=== PATIENT | male | born 1970 | race Caucasian/White ===

== ENCOUNTER 2024-07-16 16:28 | Emergency (ER) | payer BC, SELFPAY ==
[2024-07-16 16:37] VITALS: BP 138/96; PULSE 60; RESP 18; TEMP 36.4; O2SAT 97; BMI 25.3
--- NOTE | 2024-07-16 17:06 | ED.EYEPROB ---
HPI - Eye Problem General Chief complaint: Eye Problems Stated complaint: L eye injury Time Seen by Provider: 07/16/24 16:46 History of Present Illness HPI Narrative: This 53-year-old male comes in with pain and the suspicion of something in his left eye. He states that he was wearing protective glasses but was working under his car and suspects that he got something into his eye. Related Data Home Medications ?Medication ?Instructions ?Recorded ?Confirmed aspirin 81 mg capsule 81 mg PO DAILY 07/16/24 07/16/24 azelastine 137 mcg-fluticasone 50 2 spray intranasal DAILY 07/16/24 07/16/24 mcg/spray nasal spray ciclesonide 50 mcg nasal spray 2 spray intranasal DAILY PRN 07/16/24 07/16/24 (Omnaris) gabapentin 300 mg capsule 300 - 600 mg PO DAILY PRN 07/16/24 07/16/24 magnesium oxide 400 mg PO DAILY 07/16/24 07/16/24 sotalol 120 mg tablet (Betapace) 60 mg PO BID 07/16/24 07/16/24 Allergies Allergy/AdvReac Type Severity Reaction Status Date / Time Sulfa (Sulfonamide Allergy Severe Rash Verified 07/16/24 16:40 Antibiotics) Review of Systems Status of ROS: Reports: 10 or more systems reviewed and unremarkable except as noted in History and below Narrative: Constitutional: No fevers, no weight gain or loss. Eyes: Erythema and tearing in his left eye. HENT: No congestion, no sore throat, no ear pain. Cardiovascular: No chest pain, no palpitations. Respiratory: No shortness of breath, no wheezes, no cough. Gastrointestinal: No abdominal pain, no vomiting, no diarrhea. Genitourinary: No dysuria, no hematuria. Musculoskeletal: Normal range of motion. Skin: No rashes, no pruritis. Neurological: No dizziness, weakness, sensory change, speech change. Endo/Heme/Allergies: No bruising or bleeding. No polydipsia. Pysch: no suicidality, no anxiety, no insomnia. All other systems reviewed and are negative. Exam Narrative: Exam Narrative: Constitutional: Well-developed, well-nourished, no acute distress. HEENT: Normocephalic, atraumatic. Left eye has increased tearing with some erythema. Under examination with magnification there is no sign of foreign object until everting his eyelid. There was a small metal foreign object that was removed with a Q-tip. Neck: Normal range of motion. Nontender. Supple. Heart: Intact distal pulses. Lungs: No chest discomfort. No wheezes, rhonchi, or rales. Abdomen: Nontender. Back: Normal range of motion. Extremities: Normal range of motion. No injury. Skin: Intact. No rash. Warm. No erythema or pallor. Neurologic: No altered sensation. No weakness. Alert and oriented. Psychiatric: No suicidality. No anxiety or depression. No insomnia. Nursing notes and vitals signs are reviewed. Const: Vital Signs, click to edit/add: Vital Signs - 24 hr 07/16/24 16:37 Temperature 97.6 F Pulse Rate [Pulse Oximeter] 60 Respiratory Rate 18 Blood Pressure [Le ft Upper Arm] 138/96 H Pulse Oximetry 97 Oxygen Delivery Me thod Room Air Course Vital Signs Vital signs: Initial Vital Signs Temperature 97.6 F 07/16/24 16:37 Temperature Source Temporal Artery Scan 07/16/24 16:37 Pulse Rate 60 07/16/24 16:37 Respiratory Rate 18 07/16/24 16:37 Blood Pressure 138/96 H 07/16/24 16:37 Blood Pressure Mean 110 H 07/16/24 16:37 Blood Pressure Position Sitting 07/16/24 16:37 Pulse Oximetry 97 07/16/24 16:37 Oxygen Delivery Method Room Air 07/16/24 16:37 Vital Signs Temperature 97.6 F 07/16/24 16:37 Pulse Rate 60 07/16/24 16:37 Respiratory Rate 18 07/16/24 16:37 Blood Pressure 138/96 H 07/16/24 16:37 Pulse Oximetry 97 07/16/24 16:37 Oxygen Delivery Method Room Air 07/16/24 16:37 Temperature 97.6 F 07/16/24 16:37 Pulse Rate 60 07/16/24 16:37 Respiratory Rate 18 07/16/24 16:37 Blood Pressure 138/96 H 07/16/24 16:37 Pulse Oximetry 97 07/16/24 16:37 Oxygen Delivery Method Room Air 07/16/24 16:37 MDM - Eye Problem MDM Narrative Medical decision making narrative: This patient comes in with left eye pain suspecting a foreign object. After anesthesia with tetracaine I did examine his eye under magnification and did not find any abnormality until everting his upper eyelid. There was a foreign object like a small metal filing that was easily removed from the eyelid using a cotton swab. The patient is okay to be discharged home and was sent home with flurbiprofen from the eye kit. Discharge Plan Discharge Clinical Impression: Abrasion, corneal Patient Disposition: Home, Self-Care Condition: Improved Additional Instructions: Use medication as needed and indicated. Activity as tolerated. Follow up with MD return if worsening. Prescriptions: No Action sotalol [Betapace] 120 mg tablet 60 mg PO BID aspirin 81 mg capsule 81 mg PO DAILY gabapentin 300 mg capsule 300 - 600 mg PO DAILY PRN Omnaris 50 mcg spray,non-aerosol 2 spray intranasal DAILY PRN Rx Instructions: into each nostril azelastine-fluticasone 137-50 mcg/spray spray,non-aerosol 2 spray intranasal DAILY magnesium oxide 400 mg magnesium capsule 400 mg PO DAILY Stand Alone Forms: [facility] Info Instructions
--- OUTSIDE RECORDS SUMMARY | 2024-07-16 17:39 | XMS_ITS | Clinical Summary ---
Author Organization [facility] Address [address] [place] [id number] Care Team Providers Care Appliance Repair Technician Name Role Phone Jazzy Romero MD Unavailable + Nurses, Advanced Heart Failure Unavailable + Clinic, No Pcp Or Primary Care Provider Unavaila ble Allergies Active Allergy Reactions Criticality Noted Date Comments Sulfa (Sulfonamide Antibiotics) Rash Low 10/2008 Medications fluticasone (50 mcg per actuation) nasal solution (FLONASE)Indication s:Seasonal allergic rhinitis, unspecified trigger Inhale into both nostrils. Only as needed. 48 mL 0 Active rizatriptan (MAXALT) 5 mg tabletIndications:O cular migraine Take 1 Tablet (5 mg) by mouth 2 times daily if needed for Migraine. Give at minimum 2hrs apart. Max Dose: 30mg per 24hrs. As needed. 10 Tablet 1 Active cholecalciferol (VITAMIN D3) 5,000 unit capsule Take 1 Capsule (5,000 units) by mouth once daily. 40 units = 1 mcg (5000 units = 125 mcg) 0 2 Active gabapentin (NEURONTIN) 300 mg capsule TAKE 1 TO 2 CAPSULES BY MOUTH EVERY NIGHT Active APBVEXOBT-ZOSLMCL-Y AGNESIUM ORAL Take by mouth. Active ascorbic acid (VITAMIN C DROPS ORAL) Take by mouth. Active aspirin chewable 81 mg chewable tabletIndications:C ardiac sarcoidosis (HC) Chew 1 Tablet (81 mg) by mouth once daily. 4 Active losartan (COZAAR) 25 mg tabletIndications:N on-ischemic cardiomyopathy (HC) TAKE 1 TABLET BY MOUTH EVERY DAY 90 Tablet 3 4 Active sotaloL (BETAPACE) 120 mg tabletIndications:V T (ventricular tachycardia) (HC),Sarcoidosis TAKE 0.5 TABLETS (60 MG) BY MOUTH EVERY 12 HOURS. 90 Tablet 3 5 Active Active Problems Problem Noted Date Diagnosed Date HTN (hypertension) 04/21/2023 Migraine syndrome 04/21/2023 Celiac disease 04/10/2022 Overview (04/21/2023): Diagnosis 2021. 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 See Cardiac in-patient notes from 07/2013. 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 Biventricular ICD (implantab le cardioverter-defibrillator) in place Resolved Problems Problem Noted Date Diagnosed Date Resolved Date VT (ventricular tachycardia) 05/27/2014 05/17/2018 Palpitations 07/20/2013 05/27/2014 Elevated troponin 07/20/2013 05/27/2014 Renal insufficiency 07/20/2013 05/18/19 19 Right-sided heart failure Pacemaker 05/27/2014 Immunizations Immunization Administration Dates Next Due Hepatitis A (Adult) 05/21/2012,08/08/1996 Oral Polio Vaccine 08/08/1996 Td (Age >=7 Years) 08/08/1996 Tdap 02/25/2011 Typhoid (injectable) 05/21/2012 Family History Medical History Relation Name Comments Other Other No family histo ry of premature CAD, no history of sudden (cardiac) Relation Name Status Comments Other Social History Tobacco Use Types Packs/Day Years Used Date Smoking Tobacco: Never Smokeless Tobacco: Never Tobacco Cessation:Counseling Given: Yes Alcohol Use Standard Drinks/Week Comments Yes 0 (1 standard drink = 0.6 oz pur e alcohol) OCC PHQ-2 Answer Date Recorded PHQ-2 TOTAL SCORE 0 04/21/2023 Social Connections Answer Date Recorded Frequency of Communication with Friends and Fami ly Not on file 02/14/2021 Financial Resource Strain Answer Date R ecorded Difficulty of Paying Living Expenses Not on file 02/14/2021 Difficulty of Paying Living Expenses Not on file 02/14/2021 Interpersonal Safety Answer Date Record ed Are you being hit, kicked, p ushed or yelled at (see row info)? 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 Gender Identity Not on file Sexual Orientation Not on file Obstetrics History Last Filed Vital Signs Vital Sign Reading Time Taken Comments Blood Pressure 102/68 11/05/2023 8:27 AM CDT Pulse 59 11/05/2023 8:27 AM CDT Temperature 35.9 C (96.6 F) 10/01/2023 12:45 PM CDT Respiratory Rate 16 10/01/2023 12:45 PM CDT Oxygen Saturation 100% 11/05/2023 8:27 AM CDT Inhaled Oxygen Concentration - - Weight 83.9 kg (185 lb) 11/05/2023 8:27 AM CDT Height 185.4 cm (6' 0.99) 11/05/2023 8:27 AM CD T Body Mass Index 24.41 11/05/2023 8:27 AM CDT Plan of Treatment Upcoming Encounters Date Type Department Care Team (Late st Contact Info) Description 10/04/2024 Cardiac Device Check [facility] [phone] Health Maintenance Due Date Last Done Comments HIV for age 15-65 1984 Hepatitis C screening for ag e 18-79 09/25/1987 Hepatitis B series for 19+ ( 1 of 3 - 19+ 3-dose series) 1988 Pneumococcal series for age 50+ (1 of 2 - PCV) 1988 Colonoscopy through age 75 2014 Lipids for age 45-75 07/21/2018 07/21/2013 Zoster (shingles) series for age 50+ (1 of 2) 09/25/2019 Tetanus booster 02/25/2021 02/25/2011, 04/2011, 08/08/1996 COVID-19 vaccine series ( season) 2023 12/26/2020 Depression screening for age 12+ 04/21/2024 04/21/2023, 06/14/2020, 06/03/2019, Additional history exists Influenza Vaccine (Season Ended) 2024 BMI (ht and wt on same day) for age 18+ 11/04/2024 11/05/2023, 04/21/2023, 10/31/2022, Additional history exists Tdap Completed 02/25/2011 Medical Devices Implanted Type Area Severity Of Illness Coordinator Device Identifier Shelf Expiration Date Model / Serial / Lot Budget Counselor-D Implanted:07/26 by Amol Scott MD (Quantity not on file) CERTIFIED [employer]ORTHAND REPORTER-D [employer] ENERG EN [id number] / / Procedures Procedure Name Priority Date/Time Associated Diagnosis Comments LIPID PANEL Early AM 07/21/2013 6:00 AM CDT from Last 3 Months or Most Recently Relevant to Health Maintenance Results * (ABNORMAL) LIPID PANEL (07/21/2013 6:00 AM CDT) CHOLESTEROL,TOTAL 124 100 - 199 mg/dL 07/21/2013 7:38 AM CDT [facility] TRIGLYCERIDES 42 <150 mg/dL 07/21/2013 7:38 AM CDT [facility] HDL CHOLESTEROL 38(L) >40 mg/dL 4 7:38 AM CDT [facility] NON-HDL CHOLESTEROL 86 <145 mg/dl 07/21/2013 7:38 AM CDT [facility] CHOL/HDL RATIO 3.26 <4.50 07/21/2013 7:38 AM CDT [facility] LDL CHOLESTEROL 78 <=130 mg/dL 07/21/2013 7:38 AM CDT [facility] PATIENT STATUS FASTING 07/21/2013 7:38 AM CDT [facility] Blood specimen (specimen) BLOOD SPECIMEN / Unknown Butterfly / Unknown 07/21/2013 6:00 AM CDT 07/21/2013 6:42 AM CDT Sharri Thomas NP CHEMISTRY Final R esult [facility] [address] [place] [address], [place] from Last 3 Months or Most Recently Relevant to Health Maintenance Insurance BLUE CROSS OF NON-MA-ITS BLUE CROSS OF NON-MA-ITS Advance Directives * Full Code (Latest Code Status on File) Date Activated Date Inactivated Comments 11/14/2014 6:06 AM 11/14/2014 6:15 PM * Full Code Date Activated Date Inactivated Comments 08/16/2014 6:54 AM 08/16/2014 4:31 PM * Full Code Date Activated Date Inactivated Comments 05/27/2014 11:13 PM 05/31/2014 3:44 PM * Full Code Date Activated Date Inactivated Comments 07/20/2013 3:49 PM 07/28/2013 4:00 PM Care Teams Appliance Repair Technician Relationship Specialty Start Date End Date Clinic, No Pcp Or . PCP - General 03/05/22 Jazzy Romero MD [address] [address] [place] [address] Cardiology - CHF Cardiovascular Disease 11/04/18 Nurses, Advanced Heart Failure [address] [address] Heart Failure Care Coordination Advanced Heart Failure/Transplant Card 12/26/19
== END 2024-07-16 17:38 | disposition home or self-care (01) ==
LOC: ED 17:37
PROVIDERS: Emergency Provider Emergency Medicine Emergency Medical Services; PCP Family Medicine
DX: S05.02XA Injury of conjunctiva and corneal abrasion without foreign body, left eye, initial encounter (principal)
CPT/HCPCS: 99283; 99284; A9270

== ENCOUNTER 2024-10-14 15:23 | Emergency (ER) | payer BC, SELFPAY ==
--- OUTSIDE RECORDS SUMMARY | 2024-10-14 15:26 | XMS_ITS | Patient Health Record ---
Author Organization [facility] Address [address] [place] [address] Support Name Relationship Address Phone Frandy Giron Guarantor Unknown Reason For Referral No Information Plan Of Treatment No Information
--- OUTSIDE RECORDS SUMMARY | 2024-10-14 15:26 | XMS_ITS | Clinical Summary ---
Author Organization [facility] Address [address] [place] [address] Care Team Providers Care [employer] Name Role Phone Jazzy Rea MD Unavailable + Nurses, Advanced Heart Failure Unavailable + Ancelmo Corea MD Primary Care Provider Allergies Active Allergy Reactions Criticality Noted Date [...] 2 CAPSULES BY MOUTH EVERY NIGHT Active ANWURBSUO-VZBPLIU-M AGNESIUM ORAL Take by mouth. Active ascorbic [...] 05/18/19 19 Right-sided heart failure Pacemaker 05/27/2014 Encounters Date Type Department Care Team Description 10/06/2024 11:00 AM CDT Office Visit [facility] [address] [place] [address] Rosita Díaz MS, CGC Heart Problem 10/06/2024 Travel 10/02/2024 Travel 09/13/2024 Telephone [facility] [address] [place] [address] Rosita Díaz MS, [facility] Appointment 09/05/2024 Telephone [facility] [address] [place] [phone] Rosita Díaz, MS, CGC Appointment Request 08/30/2024 9:30 AM CDT Office Visit [facility] [address] [place] [address] Jazzy Rea MD CV Heart Failure Est (MARCO FOLLOW UP WITH LAB AND ECHO PRIOR PER DR REA. Lab appt on 08/29/24 at [facility] @ 2:30 PM - orders faxed 08/25/24.//No Pcp Or Clinic) 08/30/2024 Travel 08/29/2024 1:00 PM CDT Orders Only [facility] [address] [place] [address] 1 scan: (1-Ord) ECHO TTE LIMITED WO CONTRAST W COLOR W LTD DOPPLER ([id number]) 08/29/2024 Orders Only [facility] [address] [place] [address] Yasmin Ma 2 scans: (2-Ord) BNP 08/29/24 08/28/2024 Travel 08/25/2024 Travel 08/08/2024 Telephone [facility] [address] [place] [address] Jazzy Rea MD Imaging 08/03/2024 Telephone [facility] [address] [place] [address] Ancelmo Corea MD Referral (QUESTION) 08/03/2024 Telephone [facility] [address] [address] Ancelmo Corea MD Results 08/02/2024 7:30 AM CDT Office Visit [facility] [address] [place] [address] Ancelmo Corea MD Urinary Problem (Urgency x one week) 08/02/2024 Travel 07/31/2024 Travel from Last 3 Months Immunizations Immunization Administration Dates Next Due Hepatitis [...] 0 04/21/2023 Social Connections Answer Date Recorded Do you often feel lonely or isolated from those around you? 0 07/31/2024 Financial Resource Strain Answer Date R ecorded Difficulty of Paying Living Expenses 3 07/31/2024 Difficulty of Paying Living Expenses Not on file 07/31/2024 Food Insecurity Answer Date Recorded Do you worry your food will run out before you are able to buy more? 1 07/31/2024 Transportation Needs Answer Date Record ed Does lack of transportation keep you from medica l appointments? 1 07/31/2024 Does lack of transportation keep you from work, meetings or getting things that you need? 1 07/31/2024 Housing Stability Answer Date Recorded What is your housing situation today? 1 07/31/2024 Interpersonal Safety Answer Date Record ed Are you being hit, kicked, p ushed or yelled at (see row info)? No 10/01/2023 Interpersonal Safety Abuse 12 - 18 Not on file 10/01/2023 Interpersonal Safety Ambulatory Vulnerability No t on file 10/01/2023 Utilities Answer Date Recorded Do you have trouble paying f or utilities (for example, heat, electricity, water, phone)? 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 Gender Identity Not on file Sexual Orientation Not on file Obstetrics History Last Filed Vital Signs Vital Sign Reading Time Taken Comments Blood Pressure 124/84 08/30/2024 9:32 AM CDT Pulse 60 08/30/2024 9:32 AM CDT Temperature 35.9 C (96.6 F) 10/01/2023 12:45 PM CDT Respiratory Rate 16 10/01/2023 12:4 5 PM CDT Oxygen Saturation 98% 08/30/2024 9:32 AM CDT Inhaled Oxygen Concentration - - Weight 87.4 kg (192 lb 11.2 oz) 08/30/2024 9:32 AM CDT Height 185.4 cm (6' 0.99) 08/30/2024 9:32 AM CD T Body Mass Index 25.43 08/30/2024 9:32 AM CDT Plan of Treatment Upcoming Encounters Date Type Department Care Team (Latest Contact Info) Description 11/03/2024 10:30 AM CDT Appointment [facility] [address] [place], [place] [id number] 01/25/2025 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 Cardiac Device Check [address] [place] [address] Health Maintenance Due Date Last Done Comments [...] 02/25/2011, 04/2011, 08/08/1996 COVID-19 vaccine series ( - season) 2023 12/26/2020 Depression screening for age 12+ 04/21/2024 04/21/2023, 06/14/2020, 06/03/2019, Additional history exists Influenza Vaccine (#1) 2024 BMI (ht and wt on same day) for age 18+ 08/30/2025 08/30/2024, 11/05/2023, 04/21/2023, Additional history exists Medical Devices Implanted Type Area Donation Worker Device Identifier Shelf Expiration Date Model / Serial / Lot Nail Technician Teacher-D Implanted:07/26 by Amol Scott MD (Quantity not on file) SMUDGER-D [employer] ENERG EN [id number] / / Procedures Procedure Name Priority Date/Time Associated Diagnosis Comments SCAN CORRESP-LABORATORY RESULTS 08/30/2024 10:40 AM CDT ECHO TTE LIMITED WO CONTRAST W COLOR W LTD DOPPLER MARCO 08/29/2024 1:21 PM CDT Cardiac sarcoidosis (HC) Non-ischemic cardiomyopathy (HC) BASIC METABOLIC PANEL Routine 08/29/2024 Cardiac sarcoidosis (HC) 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) PRO-BNP Routine 08/29/2024 Cardiac sarcoidosis (HC) 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) URINALYSIS MACROSCOPIC - [facility] ONLY POC DIP ([facility]) Routine 08/02/2024 8:42 AM CDT Urinary frequency URINE CULTURE Routine 08/02/2024 8:41 AM CDT Urinary frequency URINALYSIS MICROSCOPIC Routine 08/02/2024 8:41 AM CDT Urinary frequency BASIC METABOLIC PANEL Routine 08/02/2024 8:03 AM CDT Urinary frequency PSA TOTAL Routine 08/02/2024 8:03 AM CDT Urinary frequency LIPID PANEL Early AM 07/21/2013 6:00 AM CDT from Last 3 Months or Most Recently Relevant to Health Maintenance Results * SCAN CORRESP-LABORATORY RESULTS (08/30/2024 10:40 AM CDT) Narrative 08/30/2024 10:40 AM CDT Ordered by an unspecified provider. us Other Clinical Staff OTHER Final Resul t * ECHO TTE LIMITED WO CONTRAST W COLOR W LTD DOPPLER (08/29/2024 1:21 PM CDT) AORTIC VALVE MEAN PG 3 mmHg EJECTION FRACTION 61 % PEAK TR VELOCITY 2.3 m/s LVEDD 4.1 cm Anatomical Region Laterality Modality Ultrasound 08/29/2024 12:4 3 PM CDT Narrative 08/29/2024 2:26 PM CDT ECHOCARDIOGRAM FRANDY MONTERO : 1970 53 years Study Date: 08/29/2024 12:43:42 PM Gender: M BP: 142/72 mmHg Height: 182.88 cm BSA: 2.09 m Weight: 86.64 kg Tech: JACOBY Referring MD: JAZZY REA Site: [facility] at [address] [place] [address] Reading Location: [place] [address] Patient Location: Outpatient. Procedure: Limited 2D , strain, Limited Spectral Doppler and Color Doppler. Indication for study: Cardiac Sarcoidosis; Non-ischemic cardiomyopathy Cardiac Rhythm: Regular.Study quality: Fair. Final Impressions: Limited Echocardiogram performed 1. Normal left ventricular size, normal wall thickness, normal global systolic function, calculated EF of 61 %. 2. Right ventricular cavity size is severely enlarged, global systolic RV function is moderately reduced. 3. The tricuspid valve is normal, mild-moderate tricuspid regurgitation. Comparison Compared to prior exam of 11/02/2023, there has been no significant change. Chamber Sizes and Function Normal left ventricular size, normal wall thickness, normal global systolic function, calculated EF of 61 %. No resting regional wall motion abnormality visualized. Right ventricular cavity size is severely enlarged, global systolic RV function is moderately reduced. An ICD lead is present in the right ventricle. The right atrium is severely enlarged. Global longitudinal strain analysis was performed using [employer] software. Current global longitudinal strain is borderline at -16 %. Valves, RV Pressures and Diastolic Function The mitral valve is normal in structure, mild mitral regurgitation. The tricuspid valve is normal in structure, mild-moderate tricuspid regurgitation. The tricuspid regurgitant velocity is 2.3 m/s, the estimated right ventricular systolic pressure is 22 mmHg plus right atrial pressure. Mild pulmonic regurgitation is present on color flow. Masses, Effusion, Shunts There is no pericardial effusion. MEASUREMENTS AND CALCULATIONS 2-D Measurements and LV Function: LVID (d) 4.1 cm Planimetered EF 61 % LVID (s) 2.8 cm LV FS% (2D) 31 % IVS (d) 0.8 cm LVOT diameter 2.5 cm LVPW (d) 0.8 cm HR 60 bpm Ao Sinus ULN 4.1 cm GLS current -16% Asc Ao ULN 4.0 cm GLS System [employer]Tec. Aortic Valve: Vmax 1.2 m/s GABRIELLA (V) 3.26 cm VTI 0.26 m GABRIELLA (I) 3.26 cm LVOT V max 0.8 m/s Max PG 5 mmHg LVOT VTI 0.17 m Mean PG 3 mmHg SV 86 ml Dim Index 0.65 SV index 41 ml/m CO 5.2 l/min CI 2.5 l/min/m Tricuspid Valve and estimated PA pressures: TR Vmax 2.3 m/s TR maxG 22 mmHg . This study was interpreted by an [facility] accredited facility. Final Procedure Note Shayne Healy MD - 08/29/2024 ECHOCARDIOGRAM FRANDY MONTERO : 1970 53 years Study Date: 08/29/2024 12:43:42 PM Gender: M BP: 142/72 mmHg Height: 182.88 cm BSA: 2.09 m Weight: 86.64 kg Tech: [facility] Referring MD: JAZZY REA Site: [facility] [address] Reading Location: [place] [address] Patient Location: Outpatient. Procedure: Limited 2D , strain, Limited Spectral Doppler and ColorDoppler. Indication for study: Cardiac Sarcoidosis; Non-ischemic cardiomyopathy Cardiac Rhythm: Regular.Study quality: Fair. Final Impressions: Limited Echocardiogram performed 1. Normal left ventricular size, normal wall thickness, normal globalsystolic function, calculated EF of 61 %. 2. Right ventricular cavity size is severely enlarged, global systolic RVfunction is moderately reduced. 3. The tricuspid valve is normal, mild-moderate tricuspidregurgitation. Comparison Compared to prior exam of 11/02/2023, there has been no significantchange. Chamber Sizes and Function Normal left ventricular size, normal wall thickness, normal globalsystolic function, calculated EF of 61 %. No resting regional wall motionabnormality visualized. Right ventricular cavity size is severelyenlarged, global systolic RV function is moderately reduced. An ICD leadis present in the right ventricle. The right atrium is severely enlarged.Global longitudinal strain analysis was performed using [employer] software.Current global longitudinal strain is borderline at -16 %. Valves, RV Pressures and Diastolic Function The mitral valve is normal in structure, mild mitral regurgitation. Thetricuspid valve is normal in structure, mild-moderate tricuspidregurgitation. The tricuspid regurgitant velocity is 2.3 m/s, theestimated right ventricular systolic pressure is 22 mmHg plus right atrialpressure. Mild pulmonic regurgitation is present on color flow. Masses, Effusion, Shunts There is no pericardial effusion. MEASUREMENTS AND CALCULATIONS 2-D Measurements and LV Function: LVID (d) 4.1 cm Planimetered EF 61 % LVID (s) 2.8 cm LV FS% (2D) 31 % IVS (d) 0.8 cm LVOT diameter 2.5 cm LVPW (d) 0.8 cm HR 60 bpm Ao Sinus ULN 4.1 cm GLS current -16% Asc Ao ULN 4.0 cm GLS System [employer]. Aortic Valve: Vmax 1.2 m/s GABRIELLA (V) 3.26 cm VTI 0.26 m GABRIELLA (I) 3.26 cm LVOT V max 0.8 m/s Max PG 5 mmHg LVOT VTI 0.17 m Mean PG 3 mmHg SV 86 ml Dim Index 0.65 SV index 41 ml/m CO 5.2 l/min CI 2.5 l/min/m Tricuspid Valve and estimated PA pressures: TR Vmax 2.3 m/s TR maxG 22 mmHg . This study was interpreted by an [facility] accredited facility. Final us Jazzy Rea MD ECHO ORD Fi nal Result * PRO-BNP (08/29/2024) Blood BLOOD SPECIMEN / Unknown 08/29/2024 Lis Haskins NP SEND OUTS Final Resu lt * BASIC METABOLIC PANEL (08/29/2024) Only the most recent of2 resultswithin the time period is included. SODIUM POTASSIUM CHLORIDE CO2,TOTAL ANION GAP GLUCOSE BUN CREATININE BUN/CREAT RATIO CALCIUM Blood BLOOD SPECIMEN / Unknown 08/29/2024 Lis Haskins NP CHEMISTRY Final Resu lt * URINALYSIS [facility] ONLY POC DIP ([facility]) (08/02/2024 8:42 AM CDT) Pathologist [facility] PH 7.0 5.0 - 8.0 [facility] SPECIFIC GRAVITY 1.015 1.001 - 1.035 [facility] GLUCOSE NEGATIVE NEGATIVE [facility] BILIRUBIN NEGATIVE NEGATIVE [facility] KETONES NEGATIVE NEGATIVE [facility] OCCULT BLOOD NEGATIVE NEGATIVE [facility] PROTEIN NEGATIVE NEGATIVE [facility] NITRITE NEGATIVE NEGATIVE [facility] LEUKOCYTE ESTERASE NEGATIVE NEGATIVE [facility] Urine URINE SPECIMEN / Unknown 08/02/2024 8:42 AM CDT 08/02/2024 8:43 AM CDT Ancelmo Corea MD URINE Final Resul t [facility] [address] [address] [place] [address], [facility] [address] [place] [address] * URINALYSIS MICROSCOPIC (08/02/2024 8:41 AM CDT) Pathologist [facility] RBC 0-2 0-2, None Seen /HPF 08/02/2024 4:14 PM CDT [facility] WBC 0-2 0-2, 3-5, None Seen /HPF 08/02/2024 4:14 PM CDT [facility] BACTERIA None Seen None Seen, Rare, Few Bacteria/ HPF 08/02/2024 4:14 PM CDT [facility] EPITHELIAL CELLS None Seen None Seen, Few Epi/HPF 08/02/2024 4:14 PM CDT [facility] HYALINE CASTS 0-2 0-2, 3-5 /LPF 08/02/2024 4:14 PM CDT [facility] Urine URINE SPECIMEN / Unknown Non-Blood / Unknown 08/02/2024 8:41 AM CDT 08/02/2024 8:41 AM CDT Ancelmo Corea MD URINE Final Resul t Performing Organization Address City/[facility]/ZIP Co de Phone Number [facility] [address] [place] [address], * URINE CULTURE (08/02/2024 8:41 AM CDT) CULTURE No growth (<1,000 CFU/mL) 08/03/2024 1:56 PM CDT [facility] Urine URINE SPECIMEN / Unknown Non-Blood / Unknown 08/02/2024 8:41 AM CDT 08/02/2024 8:41 AM CDT Ancelmo Corea MD MICROBIOLOGY Final Resul t Performing Organization Address City/[facility]/ZIP Co de Phone Number [facility] [address] [place] [address], * PSA TOTAL (DIAG OR SCREEN) (08/02/2024 8:03 AM CDT) PSA, TOTAL 1.04 < OR = 4.00 ng/mL [facility] Comment: The total PSA value from this assay system is standardized against the WHO standard. The test result will be approximately 20% lower when compared to the equimolar-standardized total PSA (Jignesh Akila). Comparison of serial PSA results should be interpreted with this fact in mind. This test was performed using the Siemens chemiluminescent method. Values obtained from different assay methods cannot be used interchangeably. PSA levels, regardless of value, should not be interpreted as absolute evidence of the presence or absence of disease. Blood BLOOD SPECIMEN / Unknown 08/02/2024 8:03 AM CDT 08/02/2024 8:04 AM CDT us Ancelmo Corea MD CHEMISTRY Final Resul t [facility] [address] [place] [address], [facility] [address] [place] [phone] * (ABNORMAL) LIPID PANEL (07/21/2013 6:00 AM CDT) [facility] CHOLESTEROL,TOTAL 124 100 - 199 mg/dL 07/21/2013 7:38 AM CDT [facility] TRIGLYCERIDES 42 <150 mg/dL 07/21/2013 7:38 AM T [facility] HDL CHOLESTEROL 38(L) >40 mg/dL 4 7:38 AM T [facility] NON-HDL CHOLESTEROL 86 <145 mg/dl 07/21/2013 7:38 AM T [facility] CHOL/HDL RATIO 3.26 <4.50 07/21/2013 7:38 AM T [facility] LDL CHOLESTEROL 78 <=130 mg/dL 07/21/2013 7:38 AM T [facility] PATIENT STATUS FASTING 07/21/2013 7:38 AM CDT [facility] Blood specimen (specimen) BLOOD SPECIMEN / Unknown Butterfly / Unknown 07/21/2013 6:00 AM CDT 07/21/2013 6:42 AM CDT Sharri Thomas NP CHEMISTRY Final R esult [facility] [address] [place] [address], from Last 3 Months or Most Recently Relevant to Health Maintenance Insurance OF [place] OF [place] Advance Directives * Full Code (Latest Code [...] 3:49 PM 07/28/2013 4:00 PM Care Teams [employer] Relationship Specialty [place] [address] [address] PCP - General Family Practice 08/30/24 Jazzy Rea MD [address] [place] [phone] Cardiology - CHF Cardiovascular Disease 11/04/18 Nurses, Advanced Heart Failure [address] [place] [address] Heart Failure Care Coordination Advanced Heart Failure/Transplant Card 12/26/19
[2024-10-14 15:43] VITALS: BP 154/99; PULSE 61; RESP 18; TEMP 36.4; O2SAT 99; BMI 24.7
--- NOTE | 2024-10-14 16:05 | CRLHL7_ITS ---
For Patients: As a result of the Cures Act, medical imaging exams and procedure reports are released immediately into your electronic medical record. You may view this report before your referring provider. If you have questions, please contact your health care provider. INDICATION: Dizziness, sarcoidosis TECHNIQUE: Chest radiograph 1 view on 2 films COMPARISON: None FINDINGS: Mediastinum: The mediastinum is normal in appearance. The cardiac silhouette is at upper limits of normal in size. There is a left cardiac pacer present with leads in the right atrium, coronary sinus, and right ventricle. Lung: Both lungs are unremarkable in appearance. No sign of pleural effusion seen. No pneumothorax is identified. Bone and Soft tissue: Unremarkable for age. IMPRESSION: 1. No acute cardiopulmonary disease is seen. Dictated by Cristóbal Dominguez MD @ 10/14/2024 4:23:06 PM Dictated by: Cristóbal Dominguez MD @ 10/14/2024 16:23:11 (Electronically Signed)
--- NOTE | 2024-10-14 16:08 | ED_ITS ---
HPI - General Adult General Chief complaint: Dizziness/Vertigo Stated complaint: elevated Bp, dizziness and lightheaded Time Seen by Provider: 10/14/24 15:52 History of Present Illness HPI narrative: Patient is a 54-year-old white male who has had history of sarcoidosis. He has had a history of cardiac arrhythmia as well and he has got a pacemaker AICD. Apparently the sarcoidosis cause some scarring on his heart it caused arrhythmia. He has had pretty much resolution of his sarcoidosis he has not had recurrence and is not a treatment for that. The last week or so he has had a couple episodes where he lays down it feels a little lightheaded, feels his eyes twitching occasionally. He has had an ejection fraction reports that is above normal. He has not had any chest pain, breathing problem, fevers, chills, shortness of breath. Patient currently is on gabapentin losartan so Betapace and aspirin. 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 He reports he has been had adequate p.o. intake. Related Data Home Medications ?Medication ?Instructions ?Recorded ?Confirmed aspirin 81 mg capsule 81 mg PO DAILY 07/16/2406/24 azelastine 137 mcg-fluticasone 50 2 spray intranasal D AILY 07/16/24 07/16/24 mcg/spray nasal spray gabapentin 300 mg capsule 300 - 600 mg PO DAILY PRN 07/16/24 magnesium oxide 400 mg PO DAILY 07/16/24 sotalol 120 mg tablet (Betapace) 60 mg PO BID 07/16/24 07/16/24 losartan 25 mg tablet 25 mg PO DAILY 10/14/2409/24 Previous Rx's ?Medication ?Instructions ?Recorded meclizine 25 mg tablet 25 mg PO QID PRN #14 tabs Allergies Allergy/AdvReac Type Severity Reaction Status Date / Time Sulfa (Sulfonamide Allergy Severe Rash Verified 07/16/24 16:40 Antibiotics) Review of Systems Status of ROS: Reports: 6 or more systems reviewed and unremarkable except as noted in History and below PFSH PFSH Social History Smoking Status: Never smoker Do you use any of these nicotine containing products: None Second hand tobacco smoke exposure: No How often do you have a drink containing alcohol: never AUDIT-C Alcohol total score: 0 Non-prescribed substance use: denies use service: No Exam Narrative: Exam Narrative: Objective: In general patient apparent distress vital signs are largely unremarkable and slightly elevated systolic pressure Alert orient x3 no cyanosis No facial asymmetry Mouth is clear tongue protrudes midline Neck is supple Chest is clear Heart rhythm regular heart murmur Abdomen benign soft extremities are no edema neurologic grossly nonfocal. Const: Vital Signs, click to edit/add: Vital Signs - 24 hr 10/14/24 15:43 Temperature 97.6 F Pulse Rate [Pulse Oximeter] 61 Respiratory Rate 18 Blood Pressure [[facility]] 154/99 H Pulse Oximetry 99 Course Vital Signs Vital signs: Initial Vital Signs Temperature 97.6 F 10/14/24 15:43 Temperature Source Temporal Artery Scan 10/14/24 15:43 Pulse Rate 61 10/14/24 15:43 Respiratory Rate 18 10/14/24 15:43 Blood Pressure 154/99 H 10/14/24 15:43 Blood Pressure Mean 117 H 10/14/24 15:43 Blood Pressure Position Sitting 10/14/24 15:43 Pulse Oximetry 99 10/14/24 15:43 Vital Signs Temperature 97.6 F 10/14/24 15:43 Pulse Rate 61 10/14/24 15:43 Respiratory Rate 18 10/14/24 15:43 Blood Pressure 154/99 H 10/14/24 15:43 Pulse Oximetry 99 10/14/24 15:43 Temperature 97.6 F 10/14/24 15:43 Pulse Rate 61 10/14/24 15:43 Respiratory Rate 18 10/14/24 15:43 Blood Pressure 154/99 H 10/14/24 15:43 Pulse Oximetry 99 10/14/24 15:43 Medications Administered Medications: Discontinued Medications Generic Name Dose Route Start Last Admin Trade Name Freq PRN Reason Stop Dose Admin Sodium Chloride 1,000 mls @ 6,000 mls/hr 10/14/24 16:15 10/14/24 17:10 0.9 % Sodium Chloride 1000 Ml IV 10/14/24 16:24 Infused .Q10M ALLISON Infusion Meclizine HCl 25 mg 10/14/24 16:06 10/14/24 16:31 Meclizine Hcl 25 Mg Tablet PO 10/14/24 16:07 25 mg ONCE ONE Administration Medical Decision Making MDM Narrative Medical decision making narrative: 54-year-old male with sarcoidosis, AICD and pacemaker, with a paced rhythm, with episodes of lightheadedness , mild vertigo. At this point I think I would give him Antivert. Will check laboratory studies electrolytes rehydrated with 1 L normal saline. His EKG looks reassuring that the patient is working well. There is no obvious changes. Will get a chest x-ray as well for completeness. Disposition pending findings above. Addendum S5 p.m. the patient's chest x-ray looks unremarkable. AICD looks in place and pacer wires in place. EKG looks reassuring with dual paced pacemaker working. Patient to get some meclizine I think that would be helpful to have perhaps even at home I will prescribe that for them. Can try that for a couple of days as needed. Recommend the lay low for the next couple of days, fluids and a regular basis, recheck with his regular doctor the next 2-3 days. His electrolytes and labs look reassuring as well as troponin is negative. CRP also negative Lab Data Labs: Lab Results 10/14/24 10/14/24 Range/Units 16:06 16:10 WBC 8.20 (4.50-11.00) K/uL RBC 4.11 L (4.30-5.90) m/uL Hgb 13.5 (13.5-17.5) gm/dL Hct 39.8 (37.0-53.0) % MCV 97 (80-100) fL MCH 33 (26-34) pg MCHC 34 (32-36) gm/dL RDW Coeff of Akanksha 12.3 (11.5-15.5) % Plt Count 278 (140-440) K/uL Neut % (Auto) 66.3 (42.0-72.0) % Lymph % (Auto) 21.1 (20-44) % [place] % (Auto) 7.8 (0.0-11.0) % Eos % (Auto) 4.0 (0.0-7.0) % Baso % (Auto) 0.6 (0.0-3.0) % Neut # (Auto) 5.43 (1.7-7.0) K/uL Lymph # (Auto) 1.73 (0.90-2.90) K/uL [place] # (Auto) 0.60 (0.00-0.90) K/UL Eos # (Auto) 0.33 (0.00-0.50) K/uL Baso # (Auto) 0.05 (0.00-0.30) K/uL Abs Immat Gran (auto) 0.02 (0.00-0.30) K/uL Imm/Tot Granulo (auto) 0.2 % Sodium 135 (135-149) mmol/L Potassium 4.4 (3.6-5.1) mmol/L Chloride 101 (96-114) mmol/L Carbon Dioxide 28 (20-32) mmol/L Anion Gap 6 L (7-15) mEq/L BUN 10 (7-30) mg/dL Creatinine 0.9 (0.5-1.5) mg/dL Estimated Creat Clear 104.81 Estimated GFR 101 ml/min Glucose 93 (60-115) mg/dL Lactate 1.0 (0.5-1.9) mmol/L Calcium 9.4 (8.4-10.6) mg/dL Total Bilirubin 1.3 (0.1-1.5) mg/dL Direct Bilirubin 0.2 (0.0-0.5) mg/dL AST 41 H (12-35) U/L ALT 35 (4-50) U/L Alkaline Phosphatase 69 (40-150) U/L C-Reactive Protein < 0.5 L (0.5-1.0) mg/dL NT-Pro-B Natriuret Pep 85 (See Note) pg/mL Total Protein 7.5 (6.0-8.3) g/dL Albumin 4.6 (3.3-5.0) g/dL Amylase 80 (18-89) U/L POC Troponin I 0.00 L (0.01-0.04) ng/ml Discharge Plan Discharge Clinical Impression: Dizziness Patient Disposition: Home w/ Parent or Adult Condition: Stable Instructions: Vertigo (ED) Additional Instructions: Light activity, fluids, recheck with regular doctor in 2-3 days. Meclizine p.r.n. if your have dizziness or concern. Return to ED as needed. Recommend updating her occupational health specialist as well. Activity Level: Light activity Discharge Diet: Regular Prescriptions: New meclizine 25 mg tablet 25 mg PO QID PRNQty: 14 0RF No Action sotalol [Betapace] 120 mg tablet 60 mg PO BID aspirin 81 mg capsule 81 mg PO DAILY gabapentin 300 mg capsule 300 - 600 mg PO DAILY PRN azelastine-fluticasone 137-50 mcg/spray spray,non-aerosol 2 spray intranasal DAILY magnesium oxide 400 mg magnesium capsule 400 mg PO DAILY losartan 25 mg tablet 25 mg PO DAILY Follow Up/Referrals: Ancelmo Corea MD [Primary Care Provider, Family Practice] Stand Alone Forms: [employer] Info Instructions
[2024-10-14 16:15] LABS: Lactate* 1.0 mmol/L (0.5-1.9)
[2024-10-14 16:18] LABS: Hematocrit 39.8 % (37.0-53.0); Hemoglobin* 13.5 gm/dL (13.5-17.5); Immature Granulocytes Abs Auto 0.02 K/uL (0.00-0.30); Immature Granulocytes Pct Auto 0.2 %; Lymphocytes Absolute Auto 1.73 K/uL (0.90-2.90); Mean Corpuscular HGB Conc 34 gm/dL (32-36); Mean Corpuscular Hemoglobin 33 pg (26-34); Mean Corpuscular Volume 97 fL (80-100); RDW Coefficient of Variation % 12.3 % (11.5-15.5); Red Blood Count 4.11 m/uL (4.30-5.90); White Blood Count* 8.20 K/uL (4.50-11.00)
[2024-10-14 16:23] LABS: Troponin, Point-of-Care* 0.00 ng/ml (0.01-0.04)
[2024-10-14 16:28] LABS: Slide Review Reflex No
[2024-10-14] MEDS: MECLIZINE HCL 25 MG TABLET PO (16:31)
[2024-10-14 16:33] LABS: Albumin* 4.6 g/dL (3.3-5.0); Chloride* 101 mmol/L (96-114); Potassium* 4.4 mmol/L (3.6-5.1); Sodium* 135 mmol/L (135-149)
[2024-10-14 16:36] LABS: Alanine Aminotransferase* 35 U/L (4-50); Alkaline Phosphatase* 69 U/L (40-150); Anion Gap 6 mEq/L (7-15); Aspartate Amino Transferase* 41 U/L (12-35); Bilirubin Direct* 0.2 mg/dL (0.0-0.5); Bilirubin Total* 1.3 mg/dL (0.1-1.5); Blood Urea Nitrogen* 10 mg/dL (7-30); Calcium* 9.4 mg/dL (8.4-10.6); Carbon Dioxide* 28 mmol/L (20-32); Creatinine* 0.9 mg/dL (0.5-1.5); Est. Creatinine Clearance* 104.81; Estimated Glomerular Filt Rate 101 ml/min; Glucose* 93 mg/dL (60-115); Total Protein* 7.5 g/dL (6.0-8.3)
[2024-10-14 16:52] LABS: NT Pro B Type NatriureticPept* 85 pg/mL (See Note)
== END 2024-10-14 17:21 | disposition home or self-care (01) ==
PROVIDERS: Emergency Provider Family Medicine; PCP Family Medicine
DX: R42 Dizziness and giddiness (principal); Z95.0 Presence of cardiac pacemaker
CPT/HCPCS: 36415; 71045; 80048; 80076; 82150; 83605; 83880; 84484; 85025; 86140; 93005; 94761; 99284; 99285; A9270; J7030